=== PATIENT | female | born 1990 | race Caucasian/White ===

== ENCOUNTER 2017-03-12 16:31 | Emergency (ER) | payer SELFPAY ==
[~2017-03-12] VITALS: Ht 167.6 cm; Wt 58.1 kg
[~2017-03-12 16:31] MED LIST: ATIVAN0.5 MG ORAL; ATIVAN1 MG ORAL; CILOXAN 0.3% O1 DROP LEFT EYE; CIPRO500 MG PO; PHENERGAN25 M1 PO; VIGAMOX1 DROP LEFT EYE; ZANTAC150 MG ORAL
[2017-03-12 17:36] LABS: APPEARANCE,URINE CLEAR; KETONES,URINE NEGATIVE (NEGATIVE); LEUKOCYTE ESTERASE ,URINE 1+ (NEGATIVE); NITRITE,URINE NEGATIVE (NEGATIVE); PH,URINE 8 (4.5-8.0); PROTEIN,URINE NEGATIVE (NEGATIVE); UROBILINOGEN,URINE NORMAL MG/DL (0.0-1.0)
[2017-03-12 17:43] LABS: RBC,URINE 0-2 /HPF (0 - 2)
[2017-03-12 17:44] LABS: AMORPHOUS SEDIMENT,UR FEW /LPF; BACTERIA,URINE FEW /HPF; SQUAMOUS EPITHELIAL CELL,UR FEW /LPF (NONE/OCC)
[2017-03-12] MEDS ORDERED: DIPHENHYDRAMINE25 M1 ORAL (18:09)
[2017-03-12] MEDS ORDERED: AMOXICILLIN500 MG ORAL (18:09)
[2017-03-12] MEDS ORDERED: TYLENOL COLD H1 EAC4 PO (18:09)
[2017-03-12] MEDS ORDERED: ALBUTEROL SULF8.5 GM INH (18:09)
[2017-03-12 18:22] VITALS: BP 124/75
--- NOTE | 2017-03-12 18:28 | Emergency Room Report ---
History of Present Illness General Chief Complaint: Flu Like Symptoms Source: Patient Present Illness HPI 26-year-old female presents to ED for evaluation. Patient states the last month she has had a cough, congestion. Feels stuffiness in her nose, bilateral ear fullness and congestion. Notes cough with yellowish sputum. denies pain. Denies fevers or chills. Denies chest pain or shortness of breath. Denies sick contacts or recent travel. Notes nausea, denies vomiting. Denies dysuria or hematuria. No aggravating relieving factors. Denies any other associated symptoms Allergies: Coded Allergies: No Known Allergies (Unverified , 07/25/12) Patient History Past Medical History: none Past Surgical History: none Pertinent Family History: none Social History: Denies: alcohol use, drug use, smoking Last Menstrual Period: 02/24/17 Now: No Immunizations: UTD Reviewed Nursing Documentation: PMH: Agreed, PSxH: Agreed Nursing Documentation-PMH Past Medical History: No Stated History Review of Systems All Other Systems: negative except mentioned in HPI Physical Exam Vital Signs Date Time Temp Pulse Resp B/P Pulse Ox O2 Delivery O2 Flow Rate FiO2 03/12/17 16:43 98.2 75 14 128/70 99 Room Air Sp02 EP Interpretation: reviewed, normal General Appearance: no apparent distress, alert, GCS 15, non-toxic Head: normocephalic, atraumatic Eyes: bilateral eye PERRL, bilateral eye normal inspection ENT: hearing grossly normal, normal pharynx, no angioedema, normal voice Neck: full range of motion, supple/symm/no masses Respiratory: chest non-tender, lungs clear, normal breath sounds, speaking full sentences Cardiovascular #1: regular rate, rhythm, no edema Cardiovascular #2: 2+ carotid (R), 2+ carotid (L), 2+ radial (R), 2+ radial (L) , 2+ dorsalis pedis (R), 2+ dorsalis pedis (L) Gastrointestinal: normal bowel sounds, non tender, soft, non-distended, no guarding, no rebound Rectal: deferred Genitourinary: normal inspection, no CVA tenderness Musculoskeletal: back normal, gait/station normal, normal range of motion, non- tender Neurologic: alert, oriented x3, responsive, motor strength/tone normal, sensory intact, speech normal Psychiatric: judgement/insight normal, memory normal, mood/affect normal, no suicidal/homicidal ideation Reflexes: 3+ bicep (R), 3+ bicep (L), 3+ tricep (R), 3+ tricep (L), 3+ knee (R) , 3+ knee (L) Skin: normal color, no rash, warm/dry, well hydrated Lymphatic: no adenopathy Medical Decision Making Diagnostic Impression: Primary Impression: Atypical pneumonia ER Course Hospital Course 26-year-old female presents to ED complaining of cough, congestion x 1 month Differential diagnoses include: URI, pharyngitis, otitis media, asthma Clinical course Patient placed on stretcher. After initial history, physical exam reveals a young female in no acute distress. Bilateral TM unremarkable. No pharyngeal erythema. No tonsillar exudates. No lymphadenopathy. lungs clear. abdomen soft. UA unremarkable, not Given persistence of symptoms for one month we will treat as atypical pneumonia Diagnosis - atypical pneumonia Stable and discharged home with Rx Amoxicillin, benedryl, albuterol, tylenol multi-symptom. Instructed to followup with PMD. Return to ED if symptoms recur or worsen Labs Test 03/12/17 17:10 Urine Color Pale yellow Urine Appearance Clear Urine pH 8 (4.5-8.0) Urine Specific Adams 1.010 (1.005-1.035) Urine Protein Negative (NEGATIVE) Urine Glucose (UA) Negative (NEGATIVE) Urine Ketones Negative (NEGATIVE) Urine Occult Blood Negative (NEGATIVE) Urine Nitrite Negative (NEGATIVE) Urine Bilirubin Negative (NEGATIVE) Urine Urobilinogen Normal MG/DL (0.0-1.0) Urine Leukocyte Esterase 1+ (NEGATIVE) Urine RBC 0-2 /HPF (0 - 2) Urine WBC 2-4 /HPF (0 - 2) Urine Squamous Epithelial Cells Few /LPF (NONE/OCC) Urine Amorphous Sediment Few /LPF (NONE) Urine Bacteria Few /HPF (NONE) Urine HCG, Qualitative Negative Last Vital Signs Date Time Temp Pulse Resp B/P Pulse Ox O2 Delivery O2 Flow Rate FiO2 03/12/17 17:36 75 14 Room Air 03/12/17 16:43 98.2 128/70 99 Status: improved Disposition: HOME, SELF-CARE Condition: Stable Scripts Diphenhydramine Hcl* (DIPHENHYDRAMINE HCL*) 25 Mg Capsule 25 MG ORAL Q6H Y for Itching, #30 CAP 0 Refills Prov: NOMAN ORTA M.D. 03/12/17 Guaifen/Phenyleph/Acetaminophn (Tylenol Cold Head Congest Cplt) 1 Each Tablet 1 EACH PO QID, #30 TAB Prov: NOMAN ORTA M.D. 03/12/17 Albuterol Sulfate* (ALBUTEROL SULFATE MDI*) 8.5 Gm Hfa.aer.ad 2 PUFF INH Q4H Y for cough/wheezing, #1 EA 0 Refills Prov: NOMAN ORTA M.D. 03/12/17 Amoxicillin* (AMOXIL*) 500 Mg Capsule 500 MG ORAL THREE TIMES A DAY, #21 CAP Prov: NOMAN ORTA M.D. 03/12/17 Patient Instructions: Community-Acquired Pneumonia, Adult, [id number] NOMAN ORTA M.D. Mar 12, 2017 18:28
== END 2017-03-12 18:24 | disposition home or self-care (01) ==
LOC: EMR 17:06
DX: J18.9 Pneumonia, unspecified organism (principal)
CPT/HCPCS: 81003; 81025; 99284